=== PATIENT | male | born 1955 | race Caucasian/White ===

== ENCOUNTER 2017-03-10 04:49 | Emergency (ER) | payer BC ==
[~2017-03-10] VITALS: Ht 182.9 cm; Wt 78.6 kg
[2017-03-10 05:06] LABS: BASE EXCESS 0.3 mEq/L (-3 to +3); BICARBONATE 25.4 mEq/L (22-26); CARBOXY HGB 1.7 % (0-5); METHEMOGLOBIN 1.1 % (0-1.5); PCO2 42 mm Hg (35-45); PO2 208 mm Hg (80-100); pH 7.39 (7.35-7.45)
[2017-03-10 05:07] LABS: COMMENTS - BLOOD GASES C+; DEVICE MASK VENT; FI02 100 %; MODE SPONT; PEEP 5 CM/H20; PRES. SUPPORT 10 CM/H2O; SITE RB; TOTAL RESP RATE 28 resp/min
[2017-03-10 05:16] LABS: BASOPHIL COUNT 0.1 K/uL (0-0.1); EOSINOPHIL (%) 6.9 % (0-5); EOSINOPHIL COUNT 0.8 K/uL (0-0.3); IMMATURE GRANULOCYTE (%) 0.3 % (0.0-0.7); INSTRUMENT ABS NEUTROPHIL CT 7.9 K/uL; LYMPHOCYTE COUNT 1.9 K/uL (1.0-2.8); MCH 29.8 PG (29.0-34.0); MCHC 32.1 G/DL (30.0-36.0); MCV 92.9 FL (86-99); MEAN PLAT.VOLUME 9.4 uM^3 (9.0-12.4); MONOCYTE (%) 6.1 % (3-12); MONOCYTE COUNT 0.7 K/uL (0-0.8); NEUTROPHIL (%) 69.7 % (45-76); NEUTROPHIL COUNT 7.9 K/uL (1.8-6.4); PLATELET COUNT 345 K/uL (156-360); RBC DIS.WIDTH-CV 13.7 % (11.8-14.6); RBC DIS.WIDTH-SD 47.1 % (39-53); WHITE BLOOD COUNT 11.3 K/uL (4.1-10.2)
[2017-03-10 05:27] LABS: CHLORIDE 104 mEq/L (99-109); POTASSIUM 3.8 mEq/L (3.7-5.4); SODIUM 138 mEq/L (136-147)
[2017-03-10 05:29] LABS: GLUCOSE 171 mg/dL (70-99)
[2017-03-10 05:30] LABS: ANION GAP 11 MEQ/L (2-14)
[2017-03-10 05:31] LABS: INTER. NORMALIZED RATIO 1.1; PROTHROMBIN TIME 11.2 (9.2-11.2); PTT 34.5 (25-32)
[2017-03-10 05:32] LABS: GFR ESTIMATE (CALCULATED) > 59 mL/min/
[2017-03-10 05:33] LABS: UREA NITROGEN (BUN) 10 mg/dL (9-23)
[2017-03-10 05:37] LABS: TROP-I INTERPRETATION NEGATIVE; TROPONIN-I < 0.01 ng/mL (0.0-0.30)
[2017-03-10 08:28] VITALS: BP 109/51
== END 2017-03-10 08:29 | disposition short-term general hospital (02) ==
LOC: EME 04:49 → EDBD 04:49 → EME 08:29
PROVIDERS: Emergency Medicine
DX: I65.1 Occlusion and stenosis of basilar artery (principal); R06.00 Dyspnea, unspecified; C34.90 Malignant neoplasm of unspecified part of unspecified bronchus or lung; Z87.891 Personal history of nicotine dependence
CPT/HCPCS: 36600; 70450; 70496; 70498; 71010; 71275; 80048; 82803; 83605; 84484; 85025; 85610; 85730; 87040; 93005; 94002; 99281; 99285; J2405; J7030

== ENCOUNTER → 2017-07-10 | Outpatient (CLI) | payer BC ==
[~2017-07-10] MED LIST: ADVAIR 250/501 DISK IH; AMBIEN5 MG PO; ASPIR 8181 M1 PO; BENADRYL50 MG PO; CLARITIN10 M3 PO; DECADRON4 MG PO; FOLIC ACID1 MG PO; LOVENOX80 MG/0.8 SC; OMEPRAZOLE20 M2 PO; PERCOCET 2.51 TABLET PO; PROTONIX40 MG PO; PROVENTIL HFA6.7 GM IH; VITAMIN D31000 UNIT PO
[2017-07-10 09:28] LABS: INTER. NORMALIZED RATIO 1.3; PROTHROMBIN TIME 14.2 SEC (10.2-12.9)
[2017-07-10 09:31] LABS: PTT 26.3 SEC (25-37)
== END | disposition home or self-care (01) ==
LOC: OPR 07:51 → EDSTATUS 09:00 → RAD 09:00
PROVIDERS: Internal Medicine
PROC: 0WH933Z Insertion of Infusion Device into Right Pleural Cavity, Percutaneous Approach (ICD-10-PCS; principal; 2017-07-10)
DX: Z46.82 Encounter for fitting and adjustment of non-vascular catheter (principal); J90 Pleural effusion, not elsewhere classified
CPT/HCPCS: 32557; 85610; 85730; 88108; J3010